=== PATIENT | female | born 1965 | race Native Hawaiian/Other Pacific Islander ===

== ENCOUNTER 2021-08-01 13:45 | Outpatient (CLI) | payer OTHER ==
[~2021-08-01 13:45] MED LIST: CELEXA10 MG PO; CLON1TAB18 PO; SEROQUEL400 MG OR
== END 2021-08-01 21:26 | disposition home or self-care (01) ==
LOC: MRI 13:45
PROVIDERS: ATTEND Nurse Practitioner Family
DX: M54.50 Low back pain, unspecified (principal)

== ENCOUNTER 2021-09-06 12:13 | Outpatient (CLI) | payer OTHER | END 2021-09-06 21:22 | disposition home or self-care (01) | LOC: RAD 12:13 | PROVIDERS: ATTEND Neurological Surgery | DX: M48.07 Spinal stenosis, lumbosacral region (principal); M25.551 Pain in right hip ==

== ENCOUNTER 2022-06-16 13:33 | Emergency (ER) | payer OTHER ==
[~2022-06-16] VITALS: Ht 172.7 cm; Wt 86.2 kg
[2022-06-16 14:26] LABS: PLATELET COUNT 261 K/uL (152-353)
[2022-06-16 14:44] LABS: POTASSIUM 3.7 mmol/L (3.6-5.2)
[2022-06-16 16:50] VITALS: BP 113/55; TEMP 99.9
== END 2022-06-16 19:46 | disposition home or self-care (01) ==
LOC: ED 13:33
PROVIDERS: Emergency Medicine
DX: R10.84 Generalized abdominal pain (principal); F31.89 Other bipolar disorder
CPT/HCPCS: 80053; 80307; 81000; 85027; 96365; 96375; 99284; J1885; J2405